=== PATIENT | female | born 1940 | race Caucasian/White ===

== ENCOUNTER → 2017-12-22 | Outpatient (CLI) | payer OTHER ==
[~2017-12-22] MED LIST: ACETAMINOPHEN325 M1; ACETAMINOPHEN325 M1 PO; ALPRAZOLAM 0.50.5 MG PO; ALPRAZOLAM1 M1; ARIXTRA; ASPIRIN EC325 M1 PO; ASPIRIN325; B-121000 MCG; B-6; BONIVA150 MG; CALCIUM500 MG PO; CELEXA 20 MG TA20 M1; CELEXA 20 MG TA20 M1 PO; CELEXA 20 MG TA20 MG PO; CENTRUM COMPLE1 EACH PO; CITRACAL + D C1 EACH; COLACE 100 MG100 MG PO; COQ-10100 MG PO; GLUCOSAMINE &1 EAC1 PO; IBUPROFEN 200200 M1; IBUPROFEN200 MG PO; KEFLEX500 MG PO; LEVAQUIN 750 M750 MG PO; LEXAPRO20 MG PO; MEGARED PLANT-300 MG PO; METAMUCIL POWD288 GM PO; METAMUCIL0.52 GM; MIRALAX255 GM; MOBIC7.5 MG PO; MULTIVITAMINS1 EAC7 PO; Mega Red PO; OMEPRAZOLE 20 M20 MG PO; OMEPRAZOLE PO; OXYCODONE HCL 55 MG PO; OXYIR5 MG; PERCOCET 5-3251 EACH; PERCOCET 5-3251 EACH PO; PERCOCET PO; PRILOSEC 20 MG20 MG PO; PROZAC PO; PROZAC10 MG PO; STOOL SOFTENER1 EAC2; TRAMADOL; VERTICALM25 MG PO; VITAMIN D-32000 UNIT; VITAMIN D1000 UNI1 PO; VITAMIN D31000 UNI2 PO
== END ==
LOC: M.LAB 12-03 10:30 → M.MRI 12-03 10:30 → M.LAB 12-16 16:30 → M.MRI 12-16 17:30 → M.LAB 16:03 → M.MRI 17:30 → M.LAB 12-26 13:30
DX: G45.9 Transient cerebral ischemic attack, unspecified (principal); G91.2 (Idiopathic) normal pressure hydrocephalus; F32.1 Major depressive disorder, single episode, moderate; M47.892 Other spondylosis, cervical region

== ENCOUNTER 2018-08-09 17:24 | Emergency (ER) | payer OTHER ==
[~2018-08-09] VITALS: Ht 154.9 cm; Wt 72.6 kg
[~2018-08-09 17:24] MED LIST changes: -LEXAPRO20 MG PO; +MEGARED OMEGA-1 EAC1 PO; -MEGARED PLANT-300 MG PO
[2018-08-09] MEDS ORDERED: LEXAPRO20 MG PO (17:35)
[2018-08-09 17:58] LABS: AMP/METHAMP Negative (Negative); BARBITURATES Negative (Negative); BENZODIAZEPINES POSITIVE (Negative); COCAINE Negative (Negative); METHADONE Negative (Negative); OPIATES Negative (Negative); PCP Negative (Negative); THC Negative (Negative)
[2018-08-09 18:01] VITALS: BP 167/95
== END 2018-08-09 18:07 | disposition home or self-care (01) ==
LOC: M.ERS 17:24
PROVIDERS: Nurse Practitioner Family
DX: K13.79 Other lesions of oral mucosa (principal); K21.9 Gastro-esophageal reflux disease without esophagitis; Z88.1 Allergy status to other antibiotic agents; Z88.5 Allergy status to narcotic agent

== ENCOUNTER 2018-10-25 11:00 | Inpatient (IN) | payer OTHER ==
[~2018-10-25] VITALS: Ht 157.5 cm; Wt 74.0 kg
[~2018-10-25 11:00] MED LIST changes: +LEXAPRO20 MG PO
[2018-10-25 11:01] VITALS: BP 133/49
[2018-10-25 11:20] LABS: URINE BILIRUBIN NEGATIVE (Negative); URINE BLOOD NEGATIVE (Negative); URINE CLARITY CLEAR; URINE COLOR YELLOW; URINE GLUCOSE-RANDOM NEGATIVE (Negative); URINE KETONES NEGATIVE (Negative); URINE LEUKOCYTES-REFLEX 1+ (Negative); URINE PROTEIN NEGATIVE (Negative); URINE SPECIFIC GRAVITY 1.015 (1.005-1.030); URINE UROBILINOGEN 0.2 E.U./dl (0.2-1.0)
[2018-10-25 11:25] LABS: URINE NITRITE-REFLEX POSITIVE (Negative)
[2018-10-25 11:32] LABS: BACTERIA-REFLEX >30 Many /HPF (None Seen); CASTS None Seen /LPF (None Seen); MUCUS None Seen strn/LPF (None Seen); SQUAMOUS 0-3 Few /LPF (0-3); URINE RBC None Seen /HPF (0-2); URINE WBC-REFLEX 0-5 Rare /HPF (0-5)
[2018-10-25 11:33] LABS: CRYSTALS None Seen /LPF (None Seen)
[2018-10-25 11:35] LABS: ABSOLUTE BASOPHILS 0.1 thou/uL (0.0-0.2); ABSOLUTE EOSINOPHILS 0.1 thou/uL (0.0-0.7); ABSOLUTE LYMPHOCYTES 1.9 thou/uL (0.8-5.3); ABSOLUTE MONOCYTES 0.8 thou/uL (0.0-1.2); ABSOLUTE NEUTROPHILS 7.8 thou/uL (1.6-8.1); BASOPHILS 0.6 %; EOSINOPHILS 0.7 %; HEMOGLOBIN 14.2 gm/dL (12.0-15.0); LYMPHOCYTES 17.9 %; MCH 32.2 pg (26.0-34.0); MCHC 33.7 g/dL (28.0-37.0); MCV 95.6 fL (80.0-100.0); MONOCYTES 7.5 %; MPV 8.8 fl. (7.2-11.1); NUCLEATED RBCS 0 /100WBC; PLATELET COUNT* 193 thou/uL (150-400); POLYS 73.3 %; RBC 4.39 mil/uL (4.20-5.00); RDW-CV 13.1 % (10.5-14.5); WBC 10.7 thou/uL (4.0-11.0)
[2018-10-25 11:44] LABS: APTT 26.8 Seconds (25.0-31.3); INR 1.1
[2018-10-25 11:50] LABS: ANION GAP 8 mmol/L (7-16); BUN 9 mg/dL (7-18); CALCIUM 8.8 mg/dL (8.5-10.1); CHLORIDE 103 mmol/L (98-107); CO2 27 mmol/L (21-32); CREATININE 0.7 mg/dL (0.6-1.3); GLUCOSE 106 mg/dL (70-99); POTASSIUM 3.6 mmol/L (3.5-5.1); SODIUM 138 mmol/L (136-145)
[2018-10-25 11:58] LABS: ALBUMIN 3.5 g/dL (3.4-5.0); ALKALINE PHOSPHATASE 109 U/L (46-116); NT-PRO BRAIN NAT PEPTIDE 324 pg/mL (<300); SGOT 16 U/L (15-37); SGPT 22 U/L (30-65); TOTAL BILIRUBIN 0.9 mg/dL (<0.1-1.0); TOTAL PROTEIN 7.1 g/dL (6.4-8.2); TROPONIN-I LEVEL <0.06 ng/mL (<0.06)
[2018-10-25 14:04] VITALS: BP 109/45
[2018-10-25 14:30] VITALS: BP 138/48
--- NOTE | 2018-10-25 15:51 | NUR ---
PATIENT ARRIVED THIS AFTERNOON FROM ER AT 1420. PATIENT IS ALERT AND ORIENTED X 4. SHE DENIES PAIN. PATIENT ASSISTED TO THE BATHROOM ON ARRIVAL. PATIENT ORIENTED TO ROOM AND PROCEDURES PLACED ON TELE MONITOR. SHE WAS ASKED ADMISSION QUESTIONS. PATIENT DENIED SOCIAL PROBLEMS AND ISSUES BUT STATED THAT SHE HAS BEEN DEPRESSED. PATIENT'S FAMILY ARRIVED AND INFORMED STAFF OF DIFFICULTIES AT HOME WITH A FAMILY MEMBER. TELE SHOWS SINUS LUPILLO WITH A 1DAVB. IV FLUIDS STARTED AND PO MEDICATIONS GIVEN. PATIENT IS RESTNG AT THIS TIME. SIDERAILS ARE UP AND CALL LIGHT IS IN REACH. BED ALARM IS ON.
[2018-10-25 19:30] VITALS: BP 142/47
--- NOTE | 2018-10-25 23:35 | NUR ---
PT SLEEPING. PT DENIES PAIN, SOA, N/V/D AT TIME OF ASSESSMENT. REFER TO ASSESSMENT FOR FURTHER DETAIL. CLWR.
[2018-10-26] VITALS (9 sets, daily range): BP systolic 104–133; BP diastolic 38–73
--- NOTE | 2018-10-26 06:50 | NUR ---
PT HAS HAD AN UNEVENTFUL SHIFT RESTING COMFORTABLY. PT HAS BEEN SB WITH PAUSES ON MONITOR. PT IS ASYMPTOMATIC AND ALERT AND ORIENTED. PT IS CURREMTLY NPO PENDING PM PLACEMENT THIS MORNING.
--- NOTE | 2018-10-26 08:15 | NUR ---
ASSUMED PT. CARE AND RECEIVED REPORT AT 0730. PT A/OX4, VSS WITH EXCEPTION OF HEART RATE RUNNING 35-45. ON 1L NC @ 96%. PT. DENIES CURRENT PAIN OR DIZZINESS. DOES STATES SHE SOMETIMES FEEL SOB. FULL ASSESSMENT COMPLETED, REFER TO CHARTING. DISCUSSED PLAN OF CARE WITH PT. DAUGHTER AND SON, AWAITING TIME FOR PACEMAKER PLACEMENT TODAY. CALL LIGHT IN REACH, WILL CONTINUE WITH PLAN OF CARE.
--- NOTE | 2018-10-26 11:18 | NUR ---
MET WITH PT, SHE STATES SHE LIVES WITH HER DTR/YAMILE. THAT SHE USES WALKER AND IS FAIRLY INDEPENDENT. THAT SHE AND YAMILE SHARE HOUSEHOLD DUTIES AND YAMILE DRIVES. PT USES [facility]ALK[facility] AND HAS HH IN PAST, DOESN'T DRIVE. SHE VOICED THAT SHE DIDN'T KNOW YAMILE'S NUMBER IT'S 'NEW' AND THAT HER SON/RADHA HAS HER PHONE. PT DID NOT VOICE ANY CONCERNS ABOUT RETURNING HOME. STATES SHE HAS 2 DTRS AND 2 SONS. DISCUSSED WITH ELVIRA KHAN. SHE STATED THERE ARE FAMILY CONCERNS ABOUT PT RETURNING HOME. CALL PLACED TO SON/RADHA. HE STATED HE IS DPOA ALONG WITH HIS SISTER/YAMILE. ASKED THAT HE SEND COPY OF DPOA TO HOSPITAL, WILL EMAIL TO . RADHA VOICED CONCERNS AND STATED THERE ARE CONCERNS RE; FINANCIAL MISUSE BY HIS SISTER WELL SISTER'S 'METH USE'. RADHA STATED THAT [facility] IS INVOLVED AND TUBE BUILDER IS BELA BALTAZAR [phone], LEFT HER VMAIL. RADHA STATED THAT HE MANAGES PT'S FINANCES NOW AND HAS BEEN DISCUSSING ASSISTED LIVING WITH HER. GAVE HIM AREA ASSISTED LIVING FACILITIES TO CONSIDER WITH PHONE NUMBERS. HE IS ALSO INTERESTED IN POSSIBLE SNF FOR PT AT [place], DISCUSSED OPTIONS AND PREFERS [facility], THEN WOULD CONSIDER [facility] OR [place]. AWAIT THERAPY EVALS. PT TO HAVE PACEMAKER TODAY. WILL FOLLOW
--- NOTE | 2018-10-26 11:22 | NUR ---
Nutrition: Pt assessed for nursing risk 2 points. [facility] no wt [facility]. Pt to receive pacemaker today. Currently NPO. Wt is 163#. Labs, RX, Hx noted. No nutrition concerns at this time. Advance to heart healthy diet when able.
--- NOTE | 2018-10-26 12:05 | CON ---
[address] [address] CONSULTATION Name: CHASIDYCHANDANWESTLEY Room: [address] IN M.R.#: [id number] Admission: 10/25/18 Attend Phys: iQ Israel MD Discharge: Date of : 36 Report #: [id number] THIS REPORT FOR: //name// CC: ABBY Israel INDICATION: Sick sinus syndrome. HISTORY OF PRESENT ILLNESS: The patient is a very pleasant 78-year-old white female who was admitted to the hospital with falling and weakness. She was noted to have a significant bradycardia with heart rates in the 30s and occasional pauses lasting up to 4 seconds. She is not having syncope. She denies any chest pain or shortness of breath. She is without other cardiac complaint at this time. She is on no medications affecting her heart rate. PAST MEDICAL HISTORY: 1. GERD. 2. Sjogren syndrome. 3. Left total knee replacement. 4. Right total shoulder. 5. Hysterectomy. 6. Arthroscopic surgery of the left knee. 7. RTK. FAMILY HISTORY: Noncontributory. SOCIAL HISTORY: The patient quit smoking remotely. She does not drink alcohol. ALLERGIES: CODEINE, ERYTHROMYCIN and MORPHINE. REVIEW OF SYSTEMS: A 14-point review of systems positive for generalized weakness, without focal paralysis. She wears glasses without acute visual loss. She has arthritis and Sjogren syndrome. Otherwise, 14-point review of systems unremarkable. PHYSICAL EXAMINATION: VITAL SIGNS: Stable. Blood pressure was 132/78, pulse is presently 70. HEENT: Extraocular muscles intact. Mucous membranes are moist. NECK: Shows no jugular venous distention. There are no carotid bruits. CARDIAC: Reveals regular rhythm without gallop or murmur. CHEST: Reveals clear lung burton without wheezes or rales. ABDOMEN: Reveals normal bowel sounds. The abdomen is soft, nontender. EXTREMITIES: Shows no edema. Peripheral pulses are 2+ and easily palpable. SKIN: Warm and dry. LABORATORY DATA: Reviewed. Sodium 138, potassium 3.6, chloride 103, bicarb 27, [place] [address] CONSULTATION Name: WESTLEY RHOADES [facility] Room: [address] IN [facility]#: [id number] Admission: 10/25/18 Attend Phys: Qi Israel MD Discharge: Date of : 38 Report #: [id number] BUN 9, creatinine 0.7, serum glucose 106. LFTs within normal limits. Troponin less than 0.06. NT-proBNP 324. Coags are within normal limits. White blood cell count 10.7, hemoglobin 14.2, platelet count 193 thousand. Chest x-ray shows no acute cardiopulmonary abnormality. IMPRESSION AND RECOMMENDATIONS: Sick sinus syndrome with weakness. Recommend permanent pacemaker placement. We will arrange to proceed later today. <ELECTRONICALLY SIGNED> By: Maxx Calderon MD, [facility] 10/26/18 0207 0837 0916[place] Sinan Calderon MD, [facility] /nt
--- NOTE | 2018-10-26 16:33 | EKG ---
[place] [address] ELECTROCARDIOGRAM REPORT Name: WESTLEY RHOADES Room: [address] ADM IN M.R.#: [id number] Admission: 10/25/18 Attend Phys: Qi Israel MD Discharge: Date of : 38 Report #: [id number] THIS REPORT FOR: //name// [facility] ED Test Date: 2018-10-25 Test Time: 11:06:32 Pat Name: WESTLEY RHOADES Department: Room: [facility] Gender: F Internet Marketing Assistant: MS : 1940 Requested By: Rock Enciso Order Number: [id number] MD: Lei Glover Measurements Intervals [place] Rate: 45 P: 0 NV: 186 QRS: -37 QRSD: 98 T: 41 QT: 461 QTc: 399 Interpretive Statements Sinus bradycardia Atrial premature complex Left axis deviation Abnormal R-wave progression, late transition Compared to ECG 08/03/2012 17:09:34 Atrial premature complex(es) now present Sinus rate has slowed Electronically Signed On 10-26-2018 16:32:59 TECHNOLOGY LEAD by Lei Glover [email or web address] <ELECTRONICALLY SIGNED> By: Lei Glover MD, FACC 10/26/18 1632 1106 1106 Lei Glover MD, [facility] /EPI
--- NOTE | 2018-10-26 16:36 | EKG ---
[place] [address] ELECTROCARDIOGRAM REPORT Name: WESTLEY RHOADES Room: [address] ADM IN M.R.#: [id number] Admission: 10/25/18 Attend Phys: Qi Israel MD Discharge: Date of : 38 Report #: [id number] THIS REPORT FOR: //name// [facility] Test Date: 2018-10-25 Test Time: 16:26:39 Pat Name: WESTLEY RHOADES Department: Room: [address] Gender: F Telecommunication Systems Designer: OMAR : 1940 Requested By: Ren Patrick Order Number: [id number] Kera MD: Lei Glover Measurements Intervals [place] Rate: 51 P: 61 AL: 247 QRS: -41 QRSD: 103 T: 25 QT: 497 QTc: 458 Interpretive Statements Sinus rhythm Prolonged AL interval Left anterior fascicular block Minimal ST depression, lateral leads Compared to ECG 08/03/2012 17:09:34 First degree AV block now present Left anterior fascicular block now present ST (T wave) deviation now present Electronically Signed On 10-26-2018 16:35:52 SOLE CONFORMING MACHINE OPERATOR by Lei Glover [email or web address] <ELECTRONICALLY SIGNED> By: Lei Glover MD, FACC 10/26/18 1635 1626 1626 Lei Glover MD, FACC /EPI
--- NOTE | 2018-10-26 17:36 | 2DMMODE ---
[place] [address] 2 D/M-MODE ECHOCARDIOGRAM Name: WESTLEY RHOADES Room: [address] IN [facility]#: [id number] Admission: 10/25/18 Attend Phys: Qi Israel, Discharge: Date of : 36 Date of Service: 10/26/18 1736 Report #: [id number] THIS REPORT FOR: //name// APPROVED REPORT Study performed: 10/26/2018 14:37:10 EXAM: Comprehensive 2D, Doppler, and color-flow Echocardiogram Patient Location: In-Patient Room #: 229 Status: routine BSA: 1.73 HR: 61 bpm BP: 128/58 mmHg Rhythm: NSR Other Information Study Quality: Good Indications Bradycardia 2D Dimensions IVSd: 9.30 (7-11mm) LVOT Diam: 20.73 (18-24mm) LVDd: 39.24 mm PWd: 8.50 (7-11mm) Ascending Ao: 28.66 (22-36mm) LVDs: 22.47 (25-40mm) Aortic Root: 28.99 mm Volumes Left Atrial Volume (Systole) LA ESV Index: 28.00 mL/m2 Aortic Valve AoV Peak Joon.: 1.65 m/s AO Peak Gr.: 10.89 mmHg LVOT Max P.62 mmHg AO Mean Gr.: 5.45 mmHg LVOT Mean P.64 mmHg LVOT Max V: 0.95 m/s AO V2 VTI: 33.39 cm LVOT Mean V: 0.58 m/s AICHA (VTI): 2.29 cm2 LVOT V1 VTI: 22.63 cm AI Fulton: 2.07 m/s2 AI PHT: 500.41 ms Mitral Valve E/A Ratio: 1.03 [place] [address] 2 D/M-MODE ECHOCARDIOGRAM Name: WESTLEY RHOADES Room: [address] IN .R.#: [id number] Admission: 10/25/18 Attend Phys: Qi Israel, Discharge: Date of : 38 Date of Service: 10/26/18 1736 Report #: [id number] MV Decel. Time: 197.30 ms MV E Max Joon.: 0.93 m/s MV PHT: 57.22 ms MVA (PHT): 3.84 cm2 TDI E/Lateral E': 8.45 E/Medial E': 6.64 Medial E' Joon.: 0.14 m/s Lateral E' Joon.: 0.11 m/s Pulmonary Valve PV Peak Joon.: 1.00 m/s PV Peak Gr.: 3.99 mmHg Tricuspid Valve RAP Estimate: 5.00 mmHg TR Peak Gr.: 23.19 mmHg RVSP: 28.00 mmHg PA Pressure: 28.00 mmHg Left Ventricle The left ventricle is normal size. There is normal LV segmental wall motion. There is normal left ventricular wall thickness. Left ventricular systolic function is normal. LVEF is 60-65%. Left ventricular filling pattern is normal for age. Right Ventricle The right ventricle is normal size. The right ventricular systolic function is normal. Atria The left atrium size is normal. The right atrium size is normal. Aortic Valve Mild aortic valve sclerosis. Mild aortic regurgitation. There is no aortic valvular stenosis. Mitral Valve There is mitral annular calcification. Trace mitral regurgitation. No evidence of mitral valve stenosis. Tricuspid Valve The tricuspid valve is normal in structure. Trace tricuspid regurgitation. No pulmonary hypertension. Pulmonic Valve The pulmonary valve is normal in structure. There [place] [address] 2 D/M-MODE ECHOCARDIOGRAM Name: WESTLEY RHOADES JAMES Room: [address]#: [id number] Admission: 10/25/18 Attend Phys: Qi Israel, Discharge: Date of : 38 Date of Service: 10/26/18 1736 Report #: [id number] valvular regurgitation. Great Vessels The aortic root is normal in size. IVC is normal in size and collapses >50% with inspiration. Pericardium There is no pericardial effusion. <Conclusion> The left ventricle is normal size. There is normal left ventricular wall thickness. Left ventricular systolic function is normal. LVEF is 60-65%. Left ventricular filling pattern is normal for age. Mild aortic valve sclerosis. Mild aortic regurgitation. There is no aortic valvular stenosis. Trace tricuspid regurgitation. No pulmonary hypertension. IVC is normal in size and collapses >50% with inspiration. <ELECTRONICALLY SIGNED> By: Maxx Calderon MD, FACC 10/26/18 [phone] Maxx Calderon MD, FACC /INF
--- NOTE | 2018-10-26 18:46 | NUR ---
PT. RETURNED FROM PACEMAKER PLACEMENT AT APPROX. 1705. VSS REMAINED STABLE, PT. ON 2L @ 96%. LEFT ARM REMAINS IN SLING. PT. REMINDED ABOUT RESTRICTIONS OF ARM MOVEMENT, VERBALIZED UNDERSTANDING. PT. FAMILY AT BEDSIDE. HOURLY ROUNDING COMPLETED THROUGH OUT THE DAY FOR PT. SAFETY.
[2018-10-27] VITALS (9 sets, daily range): BP systolic 130–159; BP diastolic 57–87
--- NOTE | 2018-10-27 05:19 | NUR ---
ASSUMED PT CARE @ 1930. VSS. AV PACEMAKER PLACEMENT TODAY. L ARM IN SLING. DRESSING INTACT WITH SCANT BLOOD ON GUAZE ONLY- MARKED W MARKER. SR W 1D AVB ON MONITOR. PT UP TO BATHROOM MULTIPLE TIMES WITH STANDBY ASSIST. IVF INFUSING R FA. PT 93-94% ON RA. DENIES ANY DIZZINES OR SOA W STANDING. STANDBY ASSIST/SLIGHTLY UNSTEADY. TRANSPORTED PT TO AY 2 VIEW. TOLERATED WELL. CALL LIGHT AT BEDSIDE. HOURLY ROUNDING FOR PT SAFETY. WILL CONTINUE TO MONITOR.
--- NOTE | 2018-10-27 05:29 | NUR ---
THIS RN REVIEWS AND AGREES WITH KEYSHA FELIX'S CHARTING.
--- NOTE | 2018-10-27 11:11 | NUR ---
ASSUMED PT CARE AT 0700 PT IS ALERT AND ORIENTED X 4 PT IS FORGETFUL PT DENIES PAIN LEFT INSICION SITE ON CHEST IS WARM SOFT SLIGHT EDEMA PT TEMP IS APPROPRIATE PHYSICIANS AWARE PT IS UP WITH SBA PT IS A FALL RISK BED ALARM IS ON, PT IS SR 1ST ON THE MONITOR, PT DAUGHTER CALLED WITH CONCERNS ABOUT PT GOING HOME FAMILY SITUATION AT HOME IS MOT APPROPRIATE STATES DAUGHTER IDALIA PT SON IS WANTING PLACEMENT FOR PT THIS NURSE TALKED WITH STAFFING AND SCHEDULING COORDINATOR WHO SPOKE WITH PT WHO AGREES TO PLACEMENT AWAITING PLACEMENT PT IS CLEARED BY CARDIOLOGY, WILL CONTINUE TO MONITOR
--- NOTE | 2018-10-27 11:28 | NUR ---
CONTINUE TO FOLLOW, ANTICIPATE DC TO SNF TODAY. SPOKE WITH TAYLOR/MEL, SHE HAS SUBMITTED FOR AUTH FOR SNF. SPOKE WITH PT, SHE IS IN AGREEMENT WITH SNF AT [place]. UPDATED SON/RADHA. AWAIT AUTH
[2018-10-27] MEDS ORDERED: CEFDINIR300 MG PO (12:55)
--- NOTE | 2018-10-27 15:30 | EKG ---
[place] [address] ELECTROCARDIOGRAM REPORT Name: WESTLEY RHOADES Room: [address] ADM IN M.R.#: [id number] Admission: 10/25/18 Attend Phys: Qi Israel MD Discharge: Date of : 38 Report #: [id number] THIS REPORT FOR: //name// [facility] Test Date: 2018-10-27 Test Time: 08:24:14 Pat Name: WESTLEY RHOADES Department: Room: [address] Gender: F Voice Pathologist: : 1940 Requested By: Maxx Calderon Order Number: [id number] Reading MD: Maxx Calderon Measurements Intervals [place] Rate: 60 P: IA: 242 QRS: -30 QRSD: 95 T: 31 QT: 438 QTc: 438 Interpretive Statements Atrial-paced rhythm Left anterior fascicular block Compared to ECG 10/25/2018 16:26:39 Sinus rhythm no longer present ST (T wave) deviation no longer present Electronically Signed On 10-27-2018 15:30:34 OPERATIONS DIRECTOR by Maxx Calderon [email or web address] <ELECTRONICALLY SIGNED> By: Maxx Calderon MD, FACC 10/27/18 1530 Maxx Calderon MD, [facility] /EPI
--- NOTE | 2018-10-28 03:20 | NUR ---
PT ALERT ORIETED. UP TO BR WITH STD BY ASSIST OF ONE. PT HAS NO IV ACCESS. DC IS PLANNED FOR TODAY. PT DID NOT WANT IT PLACED SINCE SHE WAS DISCHARGING. TELEMETRY SHOWS SR. DENIES PAIN. WILL CONTINUE TO MONITOR.
--- NOTE | 2018-10-28 03:23 | NUR ---
LEFT CHEST WITH STERI STRIPS IN PLACE. NO DRAINAGE. WILL CONTINUE TO MONITOR.
[2018-10-28 04:00] VITALS: BP 131/49
[2018-10-28 07:30] VITALS: BP 131/71
[2018-10-28] MEDS ORDERED: CEFDINIR300 MG PO (08:43)
--- NOTE | 2018-10-28 09:13 | NUR ---
HEARD BACK FROM [facility] AND PT'S INSURANCE, SNF WAS DENIED. DISCUSSED WITH DR LOPEZ. PT IMPROVED AND HE FEELS SHE CAN BE DC'D HOME WITH HH. DISCUSSED WITH PT AND SON/RADHA, VERBALIZED UNDERSTANDING. DISCUSSED HH AND WANTS TO USE SAME AGENCY HER DTR/[facility]. CALLED AND FAXED REFERRAL TO [facility]. 3RD CALL PLACED TO [facility] DISPENSING AND MEASURING OPTICIAN/BELA [phone], LEFT MESSAGE. RADHA PLANS TO F/U WITH [facility] ALSO. SON TO PICK PT UP LATER TODAY.
--- NOTE | 2018-10-28 09:29 | NUR ---
RECEIVED PT CARE 0700. SHE IS ALERT AND ORIENTED X4. SHE CAN BE FORGETFUL AT TIMES. PUBLIC ADDRESS ANNOUNCER TRACING SR. SHE DENIES ANY SOA. O2 SAT 96% ON ROOM AIR. SHE IS UP STANDBY ASSIST IN ROOM WITH BATHROOM PRIVILEDGEG. GAIT IS STEADY. PLANNING FOR DC TO HOME TODAY. AM ASSESSMENT CHARTED. MEDS PER MAR. CASE MANAGEMENT FOLLOWING FOR DC NEEDS. WILL CONTINUE TO MONITOR.
--- NOTE | 2018-10-28 13:57 | NUR ---
RECEIVED DISCHARGE ORDERS PER DR LOPEZ. IV DISCONTINUED. DOLL REPAIRER REMOVED AND RETURNED TO NURSE'S DESK. PATIENT DRESSED. ALL HER BELONGINGS PACKED AND LEAVING WITH THE PATIENT. EDUCATED ON F/U APPOINTMENTS WITH CARDIOLOGY AND HER PRIMARY. EDUCATED ON HOME HEALTH AND THEIR CONTACT INFORMATION WAS GIVEN. NEW SCRIPT FOR ANTIBIOTIC GIVEN WITH MED INFORMATION SHEETS. EDUCATION WAS GIVEN TO THE PATIENT AND HER SON. NO QUESTIONS OR CONCERNS AT TIMES OF DISCHARGE. SHE IS LEAVING VIA WHEELCHAIR ACCOMPANIED BY NURSING STAFF AND THE PATIENTS SON.
--- NOTE | 2018-10-29 10:55 | NUR ---
RECEIVED CALL FROM BELA/NANCI, UPDATED ON PT'S HOSPITAL STAY. SHE IS STILL FOLLOWING PT AT HOME
--- NOTE | 2018-11-03 17:13 | CARD ---
[address] [address] CARDIAC CATH REPORT Name: CHASIDYCHANDANWESTLEY Room: [address] IN [facility]#: [id number] Admission: 10/25/18 Attend Phys: Qi Israel MD Discharge: 10/28/18 Date of : 36 Report #: [id number] THIS REPORT FOR: //name// APPROVED REPORT Study performed: 10/26/2018 15:00:50 Patient Status: In-Patient Room #: 229 Event Personnel: Maxx Calderon Television Script Writer, Mery Whitney RN Chemical Machine Tender, Lina Miles Monitor, Waqar Bautista (R) Scrub Exam: Insertion of Dual Chamber Permanent Pacemaker Indications: Sick Sinus Syndrome/Tachy José Syndrome The patient is a 78 year-old female with a history of Sick Sinus Syndrome. Conscious Sedation Start time: 16:09 End Time: 16:39 Fentanyl 50 mcg Versed 2 mg Implanted Devices: [employer]x Biomedicalronik Eluna 8 DRT pro-MRI, model #386525, serial #[id number] dual-chamber pulse generator. Biotronik Solia S 53, model #752406, serial #[id number] ventricular lead. Biotronik Solia S 45, model #965245, serial #[id number] atrial lead. Procedure The patient underwent informed consent. We discussed the details of the procedure including the risks, which include, but not limited to bleeding, infection, vascular damage, cardiac perforation, and pneumothorax. After informed consent was obtained the area of the left chest was prepped and draped in sterile fashion. Local anesthesia was achieved with 1% lidocaine. Next after an initial incision was made a device pocket was formed over the left pectoralis muscle using electrocautery and blunt dissection. The left subclavian vein was then accessed with a micropuncture kit utilizing a peripheral injection of IV contrast. Ultimately a safety J guidewire was advanced to the level of the right atrium under fluoroscopic guidance. The guidewire was fixed external using a Jaclyn forcep. The micropuncture kit was utilized a second time to access the left subclavian vein. A second safety a guidewire was advanced to the area of the right atrium under fluoroscopic guidance. A [address] [place] [address] CARDIAC CATH REPORT Name: WESTLEY RHOADES Room: [address]#: [id number] Admission: 10/25/18 Attend Phys: Qi Israel MD Discharge: 10/28/18 Date of : 38 Report #: [id number] introducer was advanced over the free guidewire. The dilator and guidewire were removed as a ventricular lead was advanced to a secure position within the right ventricular apex under fluoroscopic guidance. The tear-away introducer was removed. The lead was actively fixed. Thresholds were checked and deemed to be satisfactory. There was no diaphragmatic stimulation with maximum output pacing. A 7 [place] tear-away introducer was advanced over the remaining guidewire. The dilator and guidewire were removed and an atrial lead advanced to a secure position within the right atrial appendage. The tear-away introducer was removed. The lead was actively fixed. Thresholds were checked and deemed to be satisfactory. There was no phrenic nerve stimulation with maximum output stimulation. After adequate slack was assured and the atrial and ventricular leads the leads were secured within the device pocket using the designated cuff and interrupted stitches of 0 silk suture. The pocket was then flushed with antibody solution. A dual-chamber pulse generator was attached to the atrial and ventricular lead. The generator and redundant lead were then placed within the device pocket. The deep tissues were closed utilizing interrupted stitches of 2-0 Vicryl. The skin incision was then closed with a single subcuticular stitch of 4-0 Vicryl. Several Steri-Strips were placed across the incision. A sterile Telfa dressing was then covered with a Tegaderm. The patient tolerated the procedure well without complication. Electrode Parameters P Wave: 2.5 mV R Wave: 7.6 mV Atrial Threshold: 1.6 V at 0.40 ms Ventricular Threshold: 0.6 V at 0.40 ms. Atrial Resistance: 448 ohms Ventricular Resistance: 643 ohms Mode: DDD/CLS. Lower rate 60 bpm. Upper tracking rate 120 bpm. Complications The patient tolerated the procedure well and there were no complications associated with the procedure. Conclusion 1. Sick sinus syndrome. 2. Successful placement of a dual-chamber pacemaker with atrial and ventricular lead placement. Recommendations [address] [address] CARDIAC CATH REPORT Name: WESTLEY RHOADES Room: [address] IN M.R.#: [id number] Admission: 10/25/18 Attend Phys: Qi Israel MD Discharge: 10/28/18 Date of : 36 Report #: [id number] 1. Follow-up site check in one week. 2. Follow-up pacemaker interrogation in one to 2 months. <ELECTRONICALLY SIGNED> By: Maxx Calderon MD, FACC 11/03/181712 12 12Michaerafi Calderon MD, FACC /INF
== END 2018-10-28 13:59 | disposition home health service (06) | DRG 243 ==
LOC: M.ERS 11:00 → M.2W 12:38 → M.TBA-ER 12:38 → M.2W 14:13
PROVIDERS: Family Medicine; ADMIT Internal Medicine
PROC: 02H63JZ Insertion of Pacemaker Lead into Right Atrium, Percutaneous Approach (ICD-10-PCS; principal; 2018-10-26)
PROC: 02HK3JZ Insertion of Pacemaker Lead into Right Ventricle, Percutaneous Approach (ICD-10-PCS; principal; 2018-10-26)
PROC: 0JH606Z Insertion of Pacemaker, Dual Chamber into Chest Subcutaneous Tissue and Fascia, Open Approach (ICD-10-PCS; principal; 2018-10-26)
DX: I49.5 Sick sinus syndrome (principal); N39.0 Urinary tract infection, site not specified; B96.20 Unspecified Escherichia coli [E. coli] as the cause of diseases classified elsewhere; K21.9 Gastro-esophageal reflux disease without esophagitis; M35.00 Sjogren syndrome, unspecified; Z96.652 Presence of left artificial knee joint; R29.6 Repeated falls; M54.9 Dorsalgia, unspecified; M54.2 Cervicalgia; Z88.1 Allergy status to other antibiotic agents; Z88.5 Allergy status to narcotic agent; Z79.82 Long term (current) use of aspirin; Z79.899 Other long term (current) drug therapy; Z90.710 Acquired absence of both cervix and uterus; Z28.21 Immunization not carried out because of patient refusal

== ENCOUNTER → 2019-03-30 | Outpatient (CLI) | payer OTHER ==
[~2019-03-30] MED LIST changes: +CEFDINIR300 MG PO
== END ==
LOC: M.RAD 16:50
DX: J40 Bronchitis, not specified as acute or chronic (principal); R53.83 Other fatigue; Z88.5 Allergy status to narcotic agent; Z88.8 Allergy status to other drugs, medicaments and biological substances; Z88.1 Allergy status to other antibiotic agents; Z95.0 Presence of cardiac pacemaker; Z96.611 Presence of right artificial shoulder joint; Z96.612 Presence of left artificial shoulder joint

== ENCOUNTER 2020-06-09 22:09 | Inpatient (IN) | payer OTHER ==
[~2020-06-09] VITALS: Ht 152.4 cm; Wt 64.9 kg
[2020-06-09 22:20] VITALS: BP 164/68
[2020-06-09] MEDS ORDERED: PROZAC20 MG PO (22:27)
[2020-06-09 22:34] LABS: URINE BILIRUBIN NEGATIVE (Negative); URINE BLOOD NEGATIVE (Negative); URINE CLARITY CLEAR; URINE COLOR YELLOW; URINE GLUCOSE-RANDOM NEGATIVE (Negative); URINE KETONES NEGATIVE (Negative); URINE LEUKOCYTES-REFLEX 1+ (Negative); URINE NITRITE-REFLEX POSITIVE (Negative); URINE PROTEIN NEGATIVE (Negative); URINE UROBILINOGEN 0.2 E.U./dl (0.2-1.0)
[2020-06-09 22:34] LABS: ABSOLUTE LYMPHOCYTES 1.1 thou/uL (0.8-5.3); ABSOLUTE MONOCYTES 0.4 thou/uL (0.0-1.2); ABSOLUTE NEUTROPHILS 8.3 thou/uL (1.6-8.1); BASOPHILS 0.5 %; EOSINOPHILS 0.4 %; HEMATOCRIT 41.6 % (37.0-47.0); HEMOGLOBIN 14.7 gm/dL (12.0-15.0); LYMPHOCYTES 11.4 %; MCH 32.9 pg (26.0-34.0); MCHC 35.4 g/dL (28.0-37.0); MCV 92.9 fL (80.0-100.0); MONOCYTES 3.8 %; MPV 7.3 fl. (7.2-11.1); NUCLEATED RBCS 0 /100WBC; PLATELET COUNT* 193 thou/uL (150-400); POLYS 83.9 %; RBC 4.48 mil/uL (4.20-5.00); RDW-CV 13.3 % (10.5-14.5); WBC 9.9 thou/uL (4.0-11.0)
[2020-06-09 22:40] LABS: BACTERIA-REFLEX >30 Many /HPF (None Seen); CASTS None Seen /LPF (None Seen); CRYSTALS None Seen /LPF (None Seen); SQUAMOUS 0-3 Few /LPF (0-3); URINE RBC 0-2 Rare /HPF (0-2); URINE WBC-REFLEX 6-15 Few /HPF (0-5)
[2020-06-09 22:49] LABS: CALCIUM 8.7 mg/dL (8.5-10.1); CREATININE 0.8 mg/dL (0.6-1.3); POTASSIUM 3.3 mmol/L (3.5-5.1)
[2020-06-09 23:04] LABS: MAGNESIUM 2.1 mg/dL (1.8-2.4); TOTAL BILIRUBIN 0.7 mg/dL (<0.1-1.0); TOTAL PROTEIN 7.7 g/dL (6.4-8.2)
[2020-06-10 00:09] VITALS: BP 125/51
[2020-06-10 00:50] VITALS: BP 141/70
[2020-06-10 01:51] VITALS: BP 136/55
--- NOTE | 2020-06-10 05:12 | NUR ---
PT ARRIVED TO THIS UNIT AT 0100. A&O X 4. VSS ON RA. PAIN MANAGED WITH FENTANYL X1. NO C/O NAUSEA/VOMITING. IVF INFUISING ORDERED. NPO FOR POSSIBLE PROCEDURE. WILL CONTINUE TO MONITOR.
[2020-06-10 07:40] VITALS: BP 107/40
[2020-06-10 15:47] VITALS: BP 122/54
--- NOTE | 2020-06-10 18:14 | NUR ---
Pt arrived back to unit at 1430 s/p lap charity. Pt tolerated sx well and c/o no pain. Pt receiving IV antibiotics and IVF and tolerating well. Up SBA to bathroom. Voiding appropriately. Advanced to regular diet and tolerating well. hourly rounding complete. will continue to monitor
[2020-06-10 20:00] VITALS: BP 127/59
[2020-06-11 03:57] LABS: HEMATOCRIT 34.4 % (37.0-47.0); MCH 33.3 pg (26.0-34.0); MCHC 35.2 g/dL (28.0-37.0); MCV 94.6 fL (80.0-100.0); RBC 3.63 mil/uL (4.20-5.00); RDW-CV 13.4 % (10.5-14.5); WBC 7.6 thou/uL (4.0-11.0)
[2020-06-11 04:00] VITALS: BP 122/55
[2020-06-11 04:16] LABS: HEMOGLOBIN 12.1 gm/dL (12.0-15.0)
[2020-06-11 04:24] LABS: ALBUMIN 2.7 g/dL (3.4-5.0); CALCIUM 7.7 mg/dL (8.5-10.1); CREATININE 0.7 mg/dL (0.6-1.3); MAGNESIUM 1.9 mg/dL (1.8-2.4); POTASSIUM 3.6 mmol/L (3.5-5.1); TOTAL BILIRUBIN 1.5 mg/dL (<0.1-1.0); TOTAL PROTEIN 5.5 g/dL (6.4-8.2)
--- NOTE | 2020-06-11 05:31 | NUR ---
PT A&O, VSS ON RA. MEDS GIVEN ORDERED. PT DENIED PAIN, N/V. LAP SITES C/D/I. PT SLEEPING/RESTING THROUGH THE NIGHT. NO OTHER CONCERNS AT THIS TIME. WILL CONTINUE TO MONITOR.
[2020-06-11 07:40] VITALS: BP 114/73
[2020-06-11] MEDS ORDERED: HYDROCODON-ACE1 EAC7 PO (09:37)
[2020-06-11 10:59] VITALS: BP 122/55
[2020-06-11 11:09] VITALS: BP 122/55
[2020-06-11 11:30] VITALS: BP 112/41
[2020-06-11 12:31] VITALS: BP 122/55
--- NOTE | 2020-06-11 12:34 | EKG ---
[place] [address] ELECTROCARDIOGRAM REPORT Name: WESTLEY RHOADES Room: [address] ADM IN .R.#: [id number] Admission: 06/09/20 Attend Phys: Qi Israel, Discharge: Date of : 36 Date of Service: 06/09/20 2225 Report #: [id number] THIS REPORT FOR: //name// [facility] ED Test Date: 2020-06-09 Test Time: 22:25:14 Pat Name: WESTLEY UMAÑACHANDAN Department: Room: [facility] Gender: F Ring Attacher: CCD : 1940 Requested By: Samara Oh Order Number: [id number] MD: Maxx Calderon Measurements Intervals [place] Rate: 78 P: MD: 255 QRS: -37 QRSD: 109 T: 22 QT: 455 QTc: 519 Interpretive Statements Atrial-paced complexes Prolonged MD interval Left axis deviation Borderline low voltage, extremity leads Abnormal R-wave progression, late transition Prolonged QT interval Compared to ECG 10/27/2018 08:24:14 First degree AV block now present Left-axis deviation now present Prolonged QT interval now present Ventricular-paced complex(es) or rhythm no longer present Left anterior fascicular block no longer present Electronically Signed On 06-11-2020 12:34:21 CDT by Maxx Calderon [email or web address] <ELECTRONICALLY SIGNED> By: Maxx Calderon MD, [facility] 06/11/20 1234 2225 Maxx Calderon MD, [facility] /EPI
--- NOTE | 2020-06-11 12:47 | NUR ---
Pt Discharged in stable condition. Pt dc with family in private vehicle via wheelchair. Pt received pain medication prior to leaving and voiced no discomfort. Iv was removed and belongings given to patient. Discharge instructions given to patient, voiced no questions or concerns. Prescription information given and [facility] sent to pt preferred pharmacy.
--- NOTE | 2020-06-14 15:07 | PATH ---
[address] [address] PATHOLOGY RPT PROCEDURE Name: JEANNIE RHOADES JAMES Room: [address] IN .R.#: [id number] Admission: 06/09/20 Date of : 36 Discharge: 06/11/20 Report #: [id number] Path Case #: [id number] [facility] Accession Number: [id number] . 01 Material submitted: . gallbladder - GALLBLADDER AND CONTENTS . 01 Clinical history: . Cholecystitis . 02 Diagnosis: Gallbladder: - Chronic and acute cholecystitis and cholelithiasis. (RAMY:alex; 06/14/2020) [facility] 06/14/2020 1238 Local . 02 Electronically signed: . Yasmany Hall MD, Pathologist NPI- [id number] . 01 Gross description: . The specimen is received in formalin, labeled "Witts, Jeannie, gallbladder" and consists of a previously punctured prince-dwyer gallbladder measuring 6.3 x 2.8 x 1.2 cm. The margin is inked. Opening reveals green bile and multiple multifaceted yellow calculi measuring up to 0.4 cm in diameter. The mucosa is green and granular with a wall thickness of 0.1 cm. No gross lesions or lymph nodes are identified. [employer] Inspector sections are submitted in A1. (SHANON; 06/13/2020) [facility] 06/13/2020 1608 Local . 02 Pathologist provided ICD-10: K80.12 . 02 CPT . 300133 Specimen Comment: A courtesy copy of this report has been sent to [phone] Specimen Comment: [id number], Specimen Comment: Report sent to ,DR DEAL / DR KNOTT Specimen Comment: A duplicate report has been generated due to demographic updates. Performed at: [address] [id number] MD Joaquin Escalante MD Phone: [phone] Performed at: [address] [place] [address] PATHOLOGY RPT PROCEDURE Name: JEANNIE RHOADES JAMES Room: [address] DIS IN M.R.#: [id number] Admission: 06/09/20 Date of : 36 Discharge: 06/11/20 Report #: [id number] Path Case #: [id number] [address], [place] [id number] MD Yasmany Hall MD Phone: [phone]
--- NOTE | 2020-06-15 13:14 | OP ---
[facility] [address] [place] [address] OPERATIVE REPORT Name: WESTLEY RHOADES Room: [address] IN M.R.#: [id number] Admission: 06/09/20 Attend Phys: Qi Israel MD Discharge: 06/11/20 Date of : 36 Report #: [id number] THIS REPORT FOR: //name// cc: Waqar Walker MD, Anthony MD ~ THIS REPORT FOR: //name// CC: Waqar Israel DATE OF SERVICE: 06/10/2020 PREOPERATIVE DIAGNOSIS: Acute cholecystitis. POSTOPERATIVE DIAGNOSIS: Acute cholecystitis. OPERATION: Laparoscopic cholecystectomy. SURGEON: Juancarlos Diaz MD ANESTHESIA: General. ESTIMATED BLOOD LOSS: 100 mL. SPECIMEN: Gallbladder. DESCRIPTION OF PROCEDURE: After informed consent was obtained, the patient was brought to the operating room and placed supine. SCDs were placed and working, preoperative antibiotics were administered, general anesthesia was induced. The abdomen was prepped and draped in the usual sterile fashion. A 10 mm incision was made below the umbilicus. Fascia was incised and a trocar was placed. Pneumoperitoneum was established. Three right upper quadrant 5 mm ports were placed. Gallbladder was grasped at the fundus and retracted cephalad. I decompressed it with a decompressing needle. It was edematous and inflamed consistent with acute cholecystitis. I was able to dissect out the cystic duct and the cystic artery. The cystic plate was fully identified. The cystic duct and artery were clipped and ligated leaving 2 clips on the remaining duct and one on the remaining artery. Gallbladder was then taken off the liver bed with electrocautery. It was placed into an Endopouch and removed. Given the degree of inflammation, the liver bed did have some oozing. I treated this with cautery. Great care was taken to ensure hemostasis. I then instilled FloSeal into the liver bed. There was excellent hemostasis and a video was taken to document the hemostasis. The ports were then removed under direct vision. [place] [address] OPERATIVE REPORT Name: WESTLEY RHOADES [facility] Room: [address] IN [facility]#: [id number] Admission: 06/09/20 Attend Phys: Qi Israel MD Discharge: 06/11/20 Date of : 36 Report #: [id number] with a [id number] 0 Vicryl. Skin was closed with 4-0 Monocryl. Incisions were sealed with Dermabond. COMPLICATIONS: None. DISPOSITION: The patient was taken to recovery in satisfactory condition. <ELECTRONICALLY SIGNED> By: Juancarlos Diaz MD 06/15/20 1314 1327 [id number] Diaz MD /nt
== END 2020-06-11 12:50 | disposition home or self-care (01) | DRG 418 ==
LOC: M.ERS 22:09 → M.TBA-ER 23:43 → M.ORTHSURG 23:43
PROVIDERS: Emergency Medicine; ADMIT Internal Medicine; ATTEND Internal Medicine
PROC: 0FT44ZZ Resection of Gallbladder, Percutaneous Endoscopic Approach (ICD-10-PCS; principal; 2020-06-10)
DX: K80.00 Calculus of gallbladder with acute cholecystitis without obstruction (principal); N39.0 Urinary tract infection, site not specified; Z03.818 Encounter for observation for suspected exposure to other biological agents ruled out; Z88.5 Allergy status to narcotic agent; K21.9 Gastro-esophageal reflux disease without esophagitis; M35.00 Sjogren syndrome, unspecified; Z96.652 Presence of left artificial knee joint; Z90.710 Acquired absence of both cervix and uterus; Z79.899 Other long term (current) drug therapy; Z79.82 Long term (current) use of aspirin; Z95.0 Presence of cardiac pacemaker; Z91.048 Other nonmedicinal substance allergy status